=== PATIENT | male | born 1985 | race Caucasian/White ===

== ENCOUNTER 2024-01-27 23:17 | Emergency (ER) | payer MEDICAID, SELFPAY ==
[2024-01-27 23:26] VITALS: BP 118/83; PULSE 117; RESP 18; TEMP 36.9; O2SAT 99; BMI 42.0
--- NOTE | 2024-01-27 23:34 | PD.EDRME ---
Rapid Medical Screening Exam [facility] Arrival date/time: 01/27/24 23:17 39M with no significant PMH presents to ED with several days of increased thirst and N/V. Patient was seen in clinic yesterday and had high blood glucose. Chief Complaint: General Adult/Misc Complain Vital signs: Vital Signs Temperature 98.5 F 01/27/24 23:26 Pulse Rate 117 H 01/27/24 23:26 Respiratory Rate 18 01/27/24 23:26 Blood Pressure 118/83 01/27/24 23:26 Pulse Oximetry (%) 99 01/27/24 23:26 Oxygen Delivery Method Room Air 01/27/24 23:26
[2024-01-27] MEDS: ONDANSETRON ODT 4 MG TABRAP PO (23:40)
[2024-01-27 23:51] LABS: Base Excess, Venous 5 (-3-3); O2 Saturation, Venous 79 % (96-97); PCO2, Venous 39 mmHg (36-56); PO2, Venous 37 mmHg (15-58); pH, Venous 7.48 (7.33-7.66)
[2024-01-27 23:56] LABS: Basophils % (Auto) 0 % (0-2.5); Beta Hydroxybutyrate 0.1 mmol/L (<0.6); Eosinophils # (Auto) 0.1 Thou/mm3 (0.0-0.5); Eosinophils % (Auto) 1 % (0-10); Hematocrit 47.6 % (41.0-53.0); Hemoglobin 17.4 g/dL (13.5-16.0); Immature Granulocytes % (Auto) 0 % (0-0); Immature Granulocytes Auto 0.02 Thou/mm3 (0.00-0.00); Lymphocytes # (Auto) 1.4 Thou/mm3 (1.0-4.8); Lymphocytes % (Auto) 17 % (10-50); Mean Corpuscular HGB Conc 36.6 g/dl (31.0-37.0); Mean Corpuscular Hemoglobin 31.4 pg (25.0-35.0); Mean Corpuscular Volume 86 fL (80-100); Monocytes # (Auto) 0.6 Thou/mm3 (0.0-0.8); Monocytes % (Auto) 8 % (0-12); Neutrophils % (Auto) 74 % (37-80); Nucleated Red Blood Cell % 0 /100 WBC (0); Platelet Count 213 Thou/mm3 (140-440); RDW Standard Deviation 36.9 fL (35.1-43.9); Red Blood Count 5.54 Miln/mm3 (4.50-5.90); White Blood Count 8.2 Thou/mm3 (3.8-10.6)
[2024-01-28 00:03] LABS: Glucose Estimated Average 255 mg/dL (80-131); Hemoglobin A1C 10.5 % Hgb (4.8-6.0)
[2024-01-28 00:15] LABS: Alanine Aminotransferase 44 U/L (10-49); Albumin, Serum 4.7 gm/dL (3.5-5.0); Albumin/Globulin Ratio 1.3 (1.2-2.2); Alkaline Phosphatase 79 U/L (46-116); Anion Gap 6 (7-16); Aspartate Amino Transferase 27 U/L (0-34); BUN/Creatinine Ratio 12 Ratio (12-20); Bilirubin,Total 0.5 mg/dL (0.3-1.2); Blood Urea Nitrogen 11 mg/dL (9-23); Carbon Dioxide 28.7 mMol/L (20.0-31.0); Chloride 99 mMol/L (98-107); Creatinine (Component) 0.9 mg/dL (0.6-1.3); Estimated Creatinine Clearance 158.7 mL/min (>60); Globulin 3.6 gm/dL (2.3-3.5); Glucose 324 mg/dL (74-106); Lipase 53 U/L (12-53); Osmolality,Calculated 280 (275-295); Potassium 4.1 mMol/L (3.4-5.1); Sodium 134 mMol/L (136-145); Total Protein 8.3 gm/dL (5.7-8.2); eGFR > 60 See Note
[2024-01-28 01:29] LABS: Amphetamine/Methamp Scrn,U Positive (Negative); Barbiturate Screen,Urine Negative (Negative); Benzodiazepines Screen,Urine Negative (Negative); Benzoylecgonine Screen, Ur Negative (Negative); Fentanyl Screen,Urine Negative (Negative); Opiate Screen,Urine Negative (Negative); THC Screen,Urine Negative (Negative)
--- NOTE | 2024-01-28 04:30 | PC.NURSE ---
Pt brought to room 10 from the lobby, and started vomiting. Pt is refusing to get into a gown, and stated, you mother fuckers kill my mother. Pt was redicrated to plan of care and still refused and stated, You not going to put a fucken IV on me...I dont need that.. get my fucken sugar down...I dont need an IV. Pt was given update on plan of care.
[2024-01-28] MEDS: ONDANSETRON INJ 2 MG/ML INJ 2 ML 4 MG IV (04:57)
[2024-01-28] MEDS: SODIUM CHLORIDE 0.9% 1000 ML 1,000 ML 999 ML IV ×2 (04:58)
[2024-01-28 05:22] VITALS: BP 109/73; PULSE 98; RESP 18; TEMP 36.6; O2SAT 99
[2024-01-28 06:02] VITALS: BP 120/86; PULSE 100; RESP 18; TEMP 36.7; O2SAT 98
--- NOTE | 2024-01-28 06:23 | EDNOTE_ITS ---
ED General RME/HPI General Chief complaint: General Adult/Misc Complain Stated complaint: HIGH BS Time Seen by Provider: 01/28/24 06:21 Arrival date/time: 01/27/24 23:17 RME / HPI RME / HPI narrative: 01/27/24 23:17 39M with no significant PMH presents to ED with several days of increased thirst and N/V. Patient was seen in clinic yesterday and had high blood glucose. This section includes all my notes and documentations, including HPI, PE, MDM, Procedure Notes, and PLAN. Margarito Sinha MD HPI: 39 year old male who was recently (couple of days ago) diagnosed with diabetes 2 days ago by PCP, started on Synjardi, presents to the ED for elevated blood sugar levels. Per patient's fiancee, blood sugar levels had been elevated all day yesterday and did not improve after taking his medication. Additionally reports nausea and vomiting on and off. Denies any fevers, chills, cough, sore throat, chest pain, sweats, shortness of breath, abdominal pain, diarrhea, or urinary symptoms. No other complaints reported. ROS: Respiratory: negative except as documented in HPI. Gastrointestinal: negative except as documented in HPI. Genitourinary: negative except as documented in HPI. Musculoskeletal: negative except as documented in HPI. Skin: negative except as documented in HPI. Neurological: negative except as documented in HPI. Physical Exam: General: Alert and oriented. No acute distress. Eyes: Conjunctivae and lids clear. ENT: No nasal congestion. Neck: Supple. Heart: RRR. Lungs: No respiratory distress. Good air movement. No rhonchi, wheezing, rales. Abdomen: Soft and nontender. Normal bowel sounds. No distension. No rebound or guarding. Back: No CVA tenderness. Skin: Warm and dry. Neuro: Alert and oriented X 3. Cranial Nerves II-XII grossly intact. No peripheral motor deficits. I reviewed EMS and prison notes. I reviewed all diagnostic test results. My interpretation of the EKG is sinus rhythm with nonspecific ST-T changes. My interpretation of the chest x-ray is no acute findings. My review of the CT report is no acute findings. Blood tests and urine tests remarkable for Glu 324, HgbA1c 10.5, and UDS positive for methamphetamine. At this point, diagnoses include hyperglycemia and newly diagnosed DM. Treatment here included IV fluid and regular insulin 8 units IV. Significant improvement noted subjectively and objectively. Recommended more outpatient workup. Based on my best medical judgment, made decision no further evaluation or treatment indicated at this time. Patient understands and agrees to the discharge instructions customized and printed, see below. Discharge instructions from Dr. Sinha: 1. After extensive evaluation, you were treated for high sugar level from your recently diagnosed diabetes. 2. Take your diabetic medication(s) as prescribed by your private doctor recently. 3. See your private doctor on 01/29/2024 for recheck and further care. Ask for help with good management of your diabetes to prevent many and very severe diabetic complications. And ask for help to quit drugs, including methamphetamine. 4. Read attached handout about diabetes. Seek immediate medical care with worsening or with any concerns. Related Data Previous Rx's ?Medication ?Instructions ?Recorded ibuprofen 800 mg tablet 800 mg PO TID PRN pain #30 tabs 11/05/21 Allergies Allergy/AdvReac Type Severity Reaction Status Date / Time No Known Allergies Allergy Verified 01/28/24 05:29 Review of Systems Review of Systems Systems Reviewed: All systems reviewed, normal except as documented Past Medical History Past Medical History CARDIAC: Negative Congestive Heart Failure RESPIRATORY: Negative Chronic Obstructive Pulmonary Disease (COPD) GENITOURINARY: Negative Renal Disease ENDOCRINE: Negative Diabetes Mellitus Type 1 or Diabetes Mellitus Type 2 Social History SMOKING STATUS: Current every day smoker SUBSTANCE USE: does not use ED Exam Narrative Physical exam: As noted in HPI Course Quality Measures none Orders Category Date Time Status Fingerstick [Bedside Blood Glucose] NOW Care 01/27/24 23:19 Completed Insert IV NOW Care 01/27/24 23:35 Completed A1C [Glycohemoglobin w (eAG)] Stat Lab 01/27/24 23:44 Completed Beta Hydroxybutyrate Stat Lab 01/27/24 23:44 Completed CBC Stat Lab 01/27/24 23:44 Completed CMP [Comprehensive Metabolic Panel] Stat Lab 01/27/24 23:44 Completed Drug Screen,Urine Stat Lab 01/28/24 00:15 Completed Lipase Stat Lab 01/27/24 23:44 Completed VBG [Venous Blood Gas] Stat Lab 01/27/24 23:44 Completed Insulin Regular Med 01/28/24 06:52 Discontinued 8 unit IV X1 ONE Ondansetron Inj [Zofran Inj] Med 01/28/24 04:54 Discontinued 4 mg IV X1 ONE Ondansetron Odt [Zofran Odt] Med 01/27/24 23:34 Discontinued 4 mg PO X1 ONE Sodium Chloride 0.9% 1000 ml [Ns] 1,000 ml Med 01/28/24 04:54 Discontinued IV 999 mls/hr Sodium Chloride 0.9% 1000 ml [Ns] 1,000 ml Med 01/28/24 04:54 Discontinued IV 999 mls/hr Vital Signs Vital signs: Vital Signs Temperature 98.5 F 01/27/24 23:26 Pulse Rate 117 H 01/27/24 23:26 Respiratory Rate 18 01/27/24 23:26 Blood Pressure 118/83 01/27/24 23:26 Pulse Oximetry (%) 99 01/27/24 23:26 Oxygen Delivery Method Room Air 01/27/24 23:26 Pulse ox is 99% on room air which is adequate. [facility] Patient data External records reviewed:: [facility] previous records (I reviewed ED visit on 11/05/2021) Clinical information provided by:: patient Social determinants that could affect healthcare access:: none Patient has the following chronic illnesses:: Recently diagnosed with diabetes How is presenting disease/condition affected by chronic disease/condition?: c aused by Evaluation data The following diagnostics were reviewed and interpreted by me:: lab results Lab and/or radiology exams considered but not ordered:: None Interpretation Summary: CBC within normal limits CMP- BS 324, anion gap 6 Medications Medications considered but not ordered:: None Medication administrations:: Medication Administration History Discontinued Medications Sodium Chloride (Ns) 1,000 mls @ 999 mls/hr IV .Q1H1M ONE Stop: 01/28/24 05:54 Last Infusion: 01/28/24 06:01 Dose: Infused Documented By: Admin: 01/28/24 04:58 Dose: 999 mls/hr Documented By: MARILIA Sodium Chloride (Ns) 1,000 mls @ 999 mls/hr IV .Q1H1M ONE Stop: 01/28/24 05:54 Last Infusion: 01/28/24 06:01 Dose: Infused Documented By: Admin: 01/28/24 04:58 Dose: 999 mls/hr Documented By: MARILIA Insulin Human Regular (Insulin Hum Regular 1 Unit/0.01 Ml (Per Unit)) 8 unit IV X1 ONE Stop: 01/28/24 06:53 Last Admin: 01/28/24 07:06 Dose: 8 unit Documented By: MARILIA Co-signed By: Magaly Ondansetron HCl (Ondansetron Odt 4 Mg Tabrap) 4 mg PO X1 ONE; Protocol Stop: 01/27/24 23:35 Last Admin: 01/27/24 23:40 Dose: 4 mg Documented By: CVL Ondansetron HCl (Ondansetron Inj 2 Mg/Ml Inj 2 Ml) 4 mg IV X1 ONE; Protocol Stop: 01/28/24 04:55 Last Admin: 01/28/24 04:57 Dose: 4 mg Documented By: MARILIA See above Consultations Consultation(s) initiated? (list below): No Diagnosis Differential Diagnosis ED Complaint MDM: Diabetes, DKA, hyperglycemia Most likely diagnosis given after review of the tests above:: Hyperglycemia due to diabetes Admission Indicated Admission indicated?: not indicated Explain why admission is indicated or not indicated:: Does not meet admission criteria Admission Request Was there a request for admission?: No Disposition Plan Disposition Plan: Discharge Discharge Attestation Discharge Attestation: The patient and all family members were given an opportunity to ask questions and understood the discharge instructions. Discharge instructions specifically effects, indications for sooner follow up or return to the emergency department, and the expected course of current diagnosis. Patient condition: Stable Medical Decision Making Differential Diagnosis Differential Diagnosis: Diabetes, DKA, hyperglycemia Lab Data 01/27/24 23:44 01/27/24 23:44 Labs: Lab Results 01/27/24 01/28/24 Range/Units 23:44 00:15 WBC 8.2 (3.8-10.6) Thou/mm3 RBC 5.54 (4.50-5.90) Miln/mm3 Hgb 17.4 H (13.5-16.0) g/dL Hct 47.6 (41.0-53.0) % MCV 86 (80-100) fL MCH 31.4 (25.0-35.0) pg MCHC 36.6 (31.0-37.0) g/dl RDW Std Deviation 36.9 (35.1-43.9) fL Plt Count 213 (140-440) Thou/mm3 Neut % (Auto) 74 (37-80) % Lymph % (Auto) 17 (10-50) % [place] % (Auto) 8 (0-12) % Eos % (Auto) 1 (0-10) % Baso % (Auto) 0 (0-2.5) % Neut # (Auto) 6.0 (1.8-7.7) Thou/mm3 Lymph # (Auto) 1.4 (1.0-4.8) Thou/mm3 [place] # (Auto) 0.6 (0.0-0.8) Thou/mm3 Eos # (Auto) 0.1 (0.0-0.5) Thou/mm3 Baso # (Auto) 0.0 (0.0-0.2) Thou/mm3 Immature Gran # (Auto) 0.02 H (0.00-0.00) Thou/mm3 Absolute Nucleated RBC 0.00 (0.00-0.00) Thou/mm3 Immature Gran % 0 (0-0) % Nucleated RBC % 0 (0) /100 WBC VBG pH 7.48 (7.33-7.66) VBG pCO2 39 (36-56) mmHg VBG pO2 37 (15-58) mmHg VBG O2 Sat (Josh) 79 L (96-97) % VBG Base Excess 5 H (-3-3) Sodium 134 L (136-145) mMol/L Potassium 4.1 (3.4-5.1) mMol/L Chloride 99 (98-107) mMol/L Carbon Dioxide 28.7 (20.0-31.0) mMol/L Anion Gap 6 L (7-16) BUN 11 (9-23) mg/dL Creatinine 0.9 (0.6-1.3) mg/dL Estim Creat Clear Calc 158.7 (>60) mL/min eGFR > 60 (60 - ) See Note BUN/Creatinine Ratio 12 (12-20) Ratio Glucose 324 H (74-106) mg/dL Estimated Ave Glu mg/dL 255 H (80-131) mg/dL Hemoglobin A1c 10.5 H (4.8-6.0) % Hgb Calculated Osmolality 280 (275-295) Calcium 10.0 (8.3-10.6) mg/dL Corrected Calcium 10.0 (8.5-10.1) mg/dL Total Bilirubin 0.5 (0.3-1.2) mg/dL AST 27 (0-34) U/L ALT 44 (10-49) U/L Alkaline Phosphatase 79 (46-116) U/L Total Protein 8.3 H (5.7-8.2) gm/dL Albumin 4.7 (3.5-5.0) gm/dL Globulin 3.6 H (2.3-3.5) gm/dL Albumin/Globulin Ratio 1.3 (1.2-2.2) Lipase 53 (12-53) U/L Beta-Hydroxybutyrate/Acetoacetate 0.1 (<0.6) mmol/L Urine Opiates Screen Negative (Negative) Urine Fentanyl Screen Negative (Negative) Ur Barbiturates Screen Negative (Negative) U Amphetamin/Meth Scrn Positive A (Negative) U Benzodiazepines Scrn Negative (Negative) U Cocaine Metab Screen Negative (Negative) U Marijuana (THC) Screen Negative (Negative) Discharge Plan Plan Patient Disposition: HOME (Self Care) Prescriptions/Referrals Prescriptions/Med Rec: No Action ibuprofen 800 mg tablet 800 mg PO TID PRN (Reason: pain) Qty: 30 0RF Referrals: Kash Ashby MD [Primary Care Provider] - In 1 week Problem List Clinical Impression: Hyperglycemia due to diabetes mellitus Patient/Caregiver Discharge Instructions Discharge Activity: activity as tolerated Education Materials: ED Diabetes with High Blood Sugar Additional Instructions: Discharge instructions from Dr. Sinha: 1. After extensive evaluation, you were treated for high sugar level from your recently diagnosed diabetes. 2. Take your diabetic medication(s) as prescribed by your private doctor recently. 3. See your private doctor on 01/29/2024 for recheck and further care. Ask for help with good management of your diabetes to prevent many and very severe diabetic complications. And ask for help to quit drugs, including methamphetamine. 4. Read attached handout about diabetes. Seek immediate medical care with worsening or with any concerns. Print Language: Tajik Stand Alone Forms: [employer] Award Info., Work/School Release, Patient Portal Info Letter
[2024-01-28] MEDS: INSULIN HUM REGULAR 1 UNIT/0.01 ML (PER UNIT) 8 UNIT IV (07:06)
[2024-01-28 07:20] VITALS: BP 118/71; PULSE 98; RESP 16; TEMP 36.7; O2SAT 99
== END 2024-01-28 07:20 | disposition home or self-care (01) ==
PROVIDERS: Physician Assistant; Emergency Provider Emergency Medicine; PCP Family Medicine
DX: E11.65 Type 2 diabetes mellitus with hyperglycemia (principal)
CPT/HCPCS: 36415; 80053; 80307; 82010; 82803; 83036; 83690; 84702; 85025; 96360; 99284; J1815; J2405; J7030; Q0162

== ENCOUNTER 2024-05-14 18:47 | Emergency (ER) | payer MEDICAID, SELFPAY ==
--- NOTE | 2024-05-14 18:52 | EDNOTE_ITS ---
ED Medical Clearance RME/HPI General Stated complaint: MEDICAL CLEARANCE Time Seen by Provider: 05/14/24 18:48 Arrival date/time: 05/14/24 18:47 RME / HPI RME / HPI Narrative: 39-year-old male patient with no significant medical history, came in for evaluation regarding medical clearance for incarceration. Patient was apparently resisting arrest, and was tased by the law enforcement. On my initial evaluation patient is denying any complaints does not want to be examined and refused vital signs. Patient was noted to be alert and oriented x 4. Related Information Previous Rx's ?Medication ?Instructions ?Recorded ibuprofen 800 mg tablet 800 mg PO TID PRN pain #30 t abs 11/05/21 Allergies Allergy/AdvReac Type Severity Reaction Status Date / Time No Known Allergies Allergy Verified 01/28/24 05:29 Review of Systems Review of Systems ROS Unobtainable: other (Refused to answer questions) ED Exam Narrative Physical exam: Physical examination was not done since patient refused to be examined Course Quality Measures none Medical Clearance MDM Narrative [facility] Narrative:: 39-year-old male patient with no significant medical history, came in for evaluation regarding medical clearance for incarceration. Patient was apparently resisting arrest, and was tased by the law enforcement. On my initial evaluation patient is denying any complaints does not want to be examined and refused vital signs. Patient was noted to be alert and oriented x 4. Patient refused treatment and examination in the emergency room. Even Vital signs patient refused. Patient is medically cleared. Patient data External records reviewed:: None Clinical information provided by:: patient and law enforcement Social determinants that could affect healthcare access:: none Patient has the following chronic illnesses:: None How is presenting disease/condition affected by chronic disease/condition?: no chronic disease Evaluation data The following diagnostics were reviewed and interpreted by me:: other (specify) (None) Lab and/or radiology exams considered but not ordered:: None Interpretation Summary: None Medications / Prescriptions Medications or Prescriptions considered but not ordered:: None Medication administrations:: None Consultations Consultation(s) initiated? (list below): No Diagnosis Medical Clearance Differential Diagnosis: other (Medical clearance for incarceration) Most likely diagnosis given after review of the tests above:: Medical clearance for incarceration Admission Indicated Admission indicated?: not indicated Admission Request Was there a request for admission?: No Disposition Plan Disposition Plan: Discharge Discharge Attestation Discharge Attestation: Patient refused vital signs, medical evaluation and treatment in the emergency room. Discharge Plan Plan Patient Disposition: Detention/Court/Law Disposition Comment: Stable Prescriptions/Referrals Prescriptions/Med Rec: No Action ibuprofen 800 mg tablet 800 mg PO TID PRN (Reason: pain) Qty: 30 0RF Problem List Clinical Impression: Medical clearance for incarceration Patient/Caregiver Discharge Instructions Education Materials: Reducing Your Health Risks ... Additional Instructions: Thank you for the opportunity for serving you today. You refused to be examined in the emergency room today. Print Language: Burmese PA/ED EDUCATIONAL AIDE Supervising Physician PA/ED EDUCATIONAL AIDE Supervising Physician: MD Ernestine
== END 2024-05-14 19:10 ==
LOC: SERX 19:04
PROVIDERS: Emergency Provider Emergency Medicine
DX: Z02.89 Encounter for other administrative examinations (principal); Z65.3 Problems related to other legal circumstances
CPT/HCPCS: 99281